=== PATIENT | male | born 1975 | race Two or more races ===

== ENCOUNTER 2017-03-27 15:51 | Emergency (ER) | payer MEDICAID ==
[~2017-03-27] VITALS: Ht 180.3 cm; Wt 97.5 kg
[2017-03-27 16:44] VITALS: BP 133/48
== END 2017-03-27 17:32 | disposition home or self-care (01) ==
LOC: ER 15:51
DX: S50.12XA Contusion of left forearm, initial encounter (principal); X58.XXXA Exposure to other specified factors, initial encounter; Y93.89 Activity, other specified; Y99.8 Other external cause status; Y92.89 Other specified places as the place of occurrence of the external cause
CPT/HCPCS: 73090

== ENCOUNTER 2024-11-17 13:51 | Emergency (ER) | payer MEDICAID, SELFPAY ==
[~2024-11-17] VITALS: Ht 180.3 cm; Wt 102.3 kg
[2024-11-17 15:21] VITALS: BP 145/111; PULSE 80; RESP 18; TEMP 97.9; O2SAT 100
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
[2024-11-17] MEDS: HYDROcodone-ACET 7.5/325MG TAB PO ONE (15:37)
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
[2024-11-17] MEDS ORDERED: METH-1181 PO (17:19)
[2024-11-17] MEDS ORDERED: NAPR-746 PO (17:19)
[2024-11-17] MEDS ORDERED: LIDO5DIS21 TOP (17:20)
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
== END 2024-11-17 17:29 | disposition home or self-care (01) ==
LOC: ER 13:51
DX: R51.9 Headache, unspecified (principal); M54.50 Low back pain, unspecified; M79.652 Pain in left thigh; Z79.899 Other long term (current) drug therapy; V43.52XA Car driver injured in collision with other type car in traffic accident, initial encounter; Y93.89 Activity, other specified; Y92.410 Unspecified street and highway as the place of occurrence of the external cause; Y99.8 Other external cause status
CPT/HCPCS: 70450; 72100